=== PATIENT | female | born 1980 ===

== ENCOUNTER 2021-10-10 12:12 | Emergency (ER) | payer SELFPAY ==
[2021-10-10 19:43] LABS: Blood Urea Nitrogen 11 mg/dL (7-17); Hemolysis Index 37
[2021-10-10 19:51] LABS: BUN/Creatinine Ratio 28
[2021-10-10 19:55] LABS: Hematocrit 41.9 % (30.3-42.9); Hemoglobin 13.9 gm/dl (10.1-14.3); Mean Corpuscular HGB Conc 33 % (30-34); Mean Corpuscular Volume 88 fl (79-97); Platelet Count 218 K/mm3 (140-440); Red Blood Count 4.77 M/mm3 (3.65-5.03); Red Cell Distribution Width 14.6 % (13.2-15.2)
--- NOTE | 2021-10-10 23:22 | Emergency Department Report ---
ED General Adult HPI - General Chief complaint: Dizziness Stated complaint: DIZZY,LIGHT HEADED PUI?: No Time Seen by Provider: 10/10/21 23:12 Source: patient Mode of arrival: Stretcher Limitations: No Limitations - History of Present Illness Initial comments: THIS IS A 42 YEAR OLD FEMALE WHO HAS BEEN IN THE ER FOR THE PAST 10 HOURS AND CHART WAS FINALLY PLACED IN THE ER SIDE. PATIENT STATES SHE WAS AT WORK AND SMELLED SOMETHING THAT MADE HER TO BE DIZZY AND LIGHTHEADED BUT SINCE COMING TO THE ER, THE SYMPTOMS HAVE COMPLETELY RESOLVED. - Related Data Previous Rx's Medication Instructions Recorded Last Taken Type Meclizine [Antivert] 12.5 mg PO BID PRN #12 10/10/21 Unknown Rx Allergies Allergy/AdvReac Type Severity Reaction Status Date / Time No Known Allergies Allergy Verified 10/10/21 12:20 ED Review of Systems ROS: Stated complaint: DIZZY,LIGHT HEADED Other details as noted in HPI Comment: All other systems reviewed and negative Constitutional: no symptoms reported Eyes: as per HPI ENT: as per HPI Respiratory: no symptoms reported, see HPI Cardiovascular: as per HPI Endocrine: no symptoms reported, see HPI Gastrointestinal: as per HPI Genitourinary: as per HPI Musculoskeletal: as per HPI Skin: as per HPI Neurological: as per HPI Psychiatric: as per HPI Hematological/Lymphatic: as per HPI ED Past Medical Hx - Past Medical History Previous Medical History?: No - Medications Home Medications: Home Medications Medication Instructions Recorded Confirmed Last Taken Type Meclizine [Antivert] 12.5 mg PO BID PRN #12 10/10/21 Unknown Rx ED Physical Exam - General Limitations: No Limitations General appearance: alert, in no apparent distress - Head Head exam: Present: atraumatic, normocephalic - Eye Eye exam: Present: normal appearance, PERRL, EOMI Pupils: Present: normal accommodation - ENT ENT exam: Present: normal exam - Neck Neck exam: Present: normal inspection, full ROM - Respiratory Respiratory exam: Present: normal lung sounds bilaterally - Cardiovascular Cardiovascular Exam: Present: regular rate, normal rhythm, normal heart sounds - GI/Abdominal GI/Abdominal exam: Present: soft - External exam: Present: normal external exam - Extremities Exam Extremities exam: Present: normal inspection, full ROM, normal capillary refill - Back Exam Back exam: Present: normal inspection, full ROM - Neurological Exam Neurological exam: Present: alert, oriented X3, CN II-XII intact - Psychiatric Psychiatric exam: Present: normal affect, normal mood - Skin Skin exam: Present: warm, normal color ED Course Vital Signs 10/10/21 12:16 Temperature 98.5 F Pulse Rate 92 H Respiratory 18 Rate Blood Pressure 110/81 [Left] O2 Sat by Pulse 99 Oximetry ED Medical Decision Making - Lab Data Result diagrams: 10/10/21 18:47 10/10/21 18:47 Critical care attestation.: If time is entered above; I have spent that time in minutes in the direct care of this critically ill patient, excluding procedure time. ED Disposition Clinical Impression: Dizziness Disposition: 01 HOME / SELF CARE / HOMELESS Is pt being admited?: No Does the pt Need Aspirin: No Condition: Stable Instructions: Dizziness, [id number] Prescriptions: Meclizine [Antivert] 12.5 mg PO BID PRN #12 PRN Reason: Vertigo Forms: Work/School Release Form(ED) Time of Disposition: 23:23
[2021-10-10 23:36] VITALS: BP 113/76
--- NOTE | 2021-10-12 18:04 | Electrocardiograph Report ---
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
== END 2021-10-11 01:56 | disposition home or self-care (01) ==
LOC: ED 12:12
DX: R42 Dizziness and giddiness (principal)
CPT/HCPCS: 36415; 80048; 85027; 93005; 99283